=== PATIENT | male | born 1985 | race Caucasian/White ===

== ENCOUNTER → 2017-06-29 | Emergency (ER) | payer OTHER ==
[~2017-06-29] VITALS: Ht 177.8 cm; Wt 83.9 kg
[~2017-06-29] MED LIST: LORAZEPAM 1 MG TABLET ONE; LORAZEPAM 1 MG TABLET PO ONE; risperiDONE 1 MG TABLET ONE; risperiDONE 1 MG TABLET PO ONE
[2017-06-29 09:10] VITALS: BP 140/92
--- NOTE | 2017-06-29 09:10 | NUR ---
PT CAME IN REQUESTING FOR RISPERIDONE MEDS. "IM HAVING EXTREME ANXIETY". NAD NOTED. DENIES SI/HI. DIRECTABLE. VSS. SEEN BY MD FOR EVAL. SAFETY AND COMFORT MEASURES PROVIDED. WILL MONITOR.
[2017-06-29 10:00] LABS: BASOPHILS # (AUTO) 0.1 /CMM (0.0-0.2); BASOPHILS % (AUTO) 0.9 % (0.0-2.0); EOSINOPHILS # (AUTO) 0.2 /CMM (0.0-0.7); EOSINOPHILS % (AUTO) 1.4 % (0.0-6.0); HEMATOCRIT 44 % (39-51); LYMPHOCYTES # (AUTO) 2.7 /CMM (0.8-4.8); LYMPHOCYTES % (AUTO) 20.7 % (20.0-44.0); MEAN CORPUSCULAR HEMOGLOBIN 31 PG (26.0-33.0); MEAN CORPUSCULAR HGB CONC 34 g/dl (31.0-36.0); MEAN CORPUSCULAR VOLUME 89 fL (80-96); MONOCYTES # (AUTO) 0.6 /CMM (0.1-1.30); MONOCYTES % (AUTO) 4.5 % (2.0-12.0); NEUTROPHILS # (AUTO) 9.5 /CMM (1.8-8.9); NEUTROPHILS % (AUTO) 72.5 % (43.0-81.0); PLATELET COUNT (AUTO) 326 /CMM (150-450); RDW COEFFICIENT OF VARIATION 12.9 (11.5-15.0); WHITE BLOOD COUNT (AUTO) 13.1 K/uL (4.3-11.0)
[2017-06-29 10:05] LABS: APPEARANCE,URINE Clear (CLEAR); BILIRUBIN,URINE SMALL (NEGATIVE); BLOOD, URINE Negative Ery/uL (NEGATIVE); COLOR,URINE Yellow (YELLOW); KETONES,URINE Trace (NEGATIVE); LEUKOCYTE ESTERASE ,URINE Negative (NEGATIVE); NITRITE, URINE Negative (NEGATIVE); PH,URINE 6.5 (5.0-8.0); PROTEIN,URINE 30 mg/dl (NEGATIVE); UGLUCOSE Negative (NEGATIVE); UROBILINOGEN,URINE 0.2 EU/dL (0.2)
[2017-06-29 10:10] LABS: CALCIUM, SERUM 9.2 mg/dL (8.5-10.1); CARBON DIOXIDE 28 mmol/L (21-32); CHLORIDE 106 mmol/L (98-107); CREATININE 1.2 mg/dL (0.6-1.3); GLUCOSE 97 mg/dL (74-106); SODIUM SERUM 142 mmol/L (136-145); UREA NITROGEN, BLOOD 21 mg/dL (7-18)
[2017-06-29 10:15] LABS: ALANINE AMINOTRANSFERASE 22 U/L (12-78); ALBUMIN 4.2 g/dL (3.4-5.0); ALCOHOL, BLOOD < 3 mg/dL (0-0); ALKALINE PHOSPHATASE 93 U/L (46-116); ASPARTATE AMINOTRANSFERASE 34 U/L (15-37); BILIRUBIN,DIRECT 0.1 mg/dL (0.0-0.2); BILIRUBIN,TOTAL 0.5 mg/dL (0.2-1.0); SALICYLATE 2.8 mg/dL (2.8-20.0); TOTAL PROTEIN, SERUM 7.4 g/dL (6.4-8.2)
[2017-06-29 10:18] LABS: ACETAMINOPHEN 0 ug/ml (10-30)
[2017-06-29 10:32] LABS: BACTERIA,URINE Rare /HPF (None Seen); RBC,URINE 0-2 /HPF (0-2); SQUAMOUS EPITHELIAL CELL,UR Rare /HPF (None Seen); WBC,URINE 0-2 /HPF (0-3)
--- NOTE | 2017-06-29 10:36 | NUR ---
ALESSANDRA LR AT FOR PSYCH EVAL.
--- NOTE | 2017-06-29 10:58 | NUR ---
Patient discharged to home in stable condition. Written and verbal after care instructions given. Patient verbalizes understanding of instruction.
== END | disposition home or self-care (01) ==
LOC: ER 09:10
DX: F23 Brief psychotic disorder (principal); Z91.012 Allergy to eggs; F17.200 Nicotine dependence, unspecified, uncomplicated
CPT/HCPCS: 36415; 80048; 80076; 80305; 80329; 81001; 85025; 99284; A4606; G0480 ×2; Z7610; 81000-TC

== ENCOUNTER 2019-02-26 19:01 | Emergency (ER) | payer OTHER ==
--- NOTE | 2019-02-26 19:25 | NUR ---
CALLED IN WR, NO ANSWER.
--- NOTE | 2019-02-26 19:43 | NUR ---
PATIENT NOT IN THE WAITNG ROOM.
--- NOTE | 2019-02-26 20:06 | NUR ---
PATIENT NOT IN THE WAITING ROOM.
== END 2019-02-26 20:07 | disposition left against medical advice (07) ==
LOC: ER 19:07
DX: Z53.21 Procedure and treatment not carried out due to patient leaving prior to being seen by health care provider (principal)

== ENCOUNTER 2025-07-25 00:57 | Emergency (ER) | payer OTHER ==
[~2025-07-25] VITALS: Ht 180.3 cm; Wt 90.7 kg
[2025-07-25] MEDS ORDERED: IBUPROFEN 400 MG TABLET ONE (03:02)
[2025-07-25] MEDS ORDERED: HYDROCODONE/APAP 5/325MG TABLET ONE (03:02)
[2025-07-25] MEDS: IBUPROFEN 400 MG TABLET PO ONE (03:04)
[2025-07-25] MEDS: HYDROCODONE/APAP 5/325MG TABLET PO ONE (03:05)
[2025-07-25] MEDS ORDERED: SULI200T4 PO (05:20)
[2025-07-25] MEDS ORDERED: HYDR-4209 PO (05:20)
[2025-07-25 05:32] VITALS: BP 125/70; TEMP 98; O2SAT 99
== END 2025-07-25 05:32 | disposition home or self-care (01) ==
LOC: ER 01:50
DX: S52.571A Other intraarticular fracture of lower end of right radius, initial encounter for closed fracture (principal); F17.200 Nicotine dependence, unspecified, uncomplicated; R51.9 Headache, unspecified; Z91.0120 Allergy to eggs, unspecified; V03.99XA Pedestrian with other conveyance injured in collision with car, pick-up truck or van, unspecified whether traffic or nontraffic accident, initial encounter; Y93.89 Activity, other specified; Y92.410 Unspecified street and highway as the place of occurrence of the external cause; Y99.8 Other external cause status
CPT/HCPCS: 70450-TC; 72125-TC; 73090-TC; 73110; 73130-TC